=== PATIENT | female | born 1980 | race African-American/Black ===

== ENCOUNTER 2023-02-25 21:11 | Emergency (ER) | payer OTHER ==
[2023-02-25 21:31] VITALS: BP 145/94; PULSE 110; RESP 18; TEMP 98.1; BMI 29.2
[2023-02-25 22:15] LABS: HEMOGLOBIN 9.2 G/dL (10.7-15.3); MCH 28.3 pg (25.7-33.7); MCHC 31.7 g/dl (32.0-36.0); MEAN CELL VOLUME 89.1 fl (80-96); MEAN PLT VOLUME 7.8 fl (7.5-11.1); PLATELET COUNT 566.3 10^3/uL (134-434); RBC 3.25 10^6/uL (3.60-5.2); WHITE BLOOD COUNT 4.6 10^3/uL (4.0-10.8)
[2023-02-25 22:30] LABS: ALBUMIN 3.1 g/dl (3.4-5.0); BILIRUBIN,TOTAL 0.3 mg/dl (0.2-1); CALCIUM 8.9 mg/dl (8.5-10); CREATININE 0.6 mg/dl (0.55-1.3); POTASSIUM 3.9 mmol/L (3.5-5.1)
== END 2023-02-25 23:11 | disposition home or self-care (01) ==
LOC: FER 21:11
DX: R22.43 Localized swelling, mass and lump, lower limb, bilateral (principal)
CPT/HCPCS: 36415; 80053; 85027; 93970-TC; 99284-25